=== PATIENT | male | born 1955 | race Caucasian/White ===

== ENCOUNTER → 2018-01-31 | Outpatient (CLI) | payer BC ==
[2018-01-31 18:10] LABS: Blood Urea Nitrogen 15 mg/dL (9-20)
--- NOTE | 2018-01-31 20:16 | MR ---
EXAMINATION TYPE: MR angio head wo con DATE OF EXAM: 01/31/2018 COMPARISON: NONE HISTORY: Headache, cranial nerve disorder TECHNIQUE: Utilizing 3-D [id number] intracranial MRA of the [place] was performed. FINDINGS: The vertebrobasilar and carotid systems are patent. There is no sizable aneurysm or vascular malform ation. 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 IMPRESSION: 1. No evidence of vascular malformation or sizable aneurysm.
--- NOTE | 2018-01-31 20:38 | MR ---
MRI of the brain with and without contrast EXAM DATE: 01/31/2018 HISTORY: Headaches Double vision and left-sided weakness. TECHNIQUE: T1-weighted sagittal, T2, FLAIR, and diffusion axial, postcontrast T1 axial and coronal vi ews of the brain are submitted. CONTRAST: 10 mL Gadavist FINDINGS: There is no evidence of acute ischemia. The ventricles, basal cisterns, and sulci overlying the co nvexities are consistent with the patient's age. There is no mass effect or enhancing mass. Craniocervical junction maintained. Sella turcica has a normal appearance. No evidence of cerebellopo ntine angle mass. 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 Nasal septal deviation changes of chronic sinusitis noted. Punctate areas of abnormal signal involving the basal ganglia are most likely related to prominent Vi rchow-Charanjit spaces or less likely tiny remote lacunar infarction WHITE MATTER: There are proximally 5-10 less than 5 mm areas of abnormal signal the white matter which are scattere d and nonspecific. IMPRESSION: 1. Minimal nonspecific white matter changes. No clinical significance. No definite acute process iden tified.
== END | disposition home or self-care (01) ==
LOC: RADMRIMAIN 17:31
PROVIDERS: ATTEND Ophthalmology
DX: R90.82 White matter disease, unspecified (principal); G52.9 Cranial nerve disorder, unspecified; H47.092 Other disorders of optic nerve, not elsewhere classified, left eye
CPT/HCPCS: 82565; 84520; 70544; 70553; 36415; A9581